=== PATIENT | male | born 1980 | race Caucasian/White ===

== ENCOUNTER 2021-03-16 07:28 | Observation (INO) | payer OTHER, MEDICAID ==
[2021-03-16 08:00] LABS: ANION GAP 13.7 meq/L (7-15); CHLORIDE,CL 102 mmol/L (98-107); SODIUM,NA 140 mmol/L (136-145)
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
[2021-03-16] MEDS ORDERED: Iopamidol 612 MG/ML 100 ML Bottle IVPUSH ONE (08:10)
[2021-03-16] MEDS ORDERED: fentaNYL 100 MCG/2 ML SDV IVPUSH ONE ×2 (08:50→10:18)
[2021-03-16] MEDS: Sodium Chloride 0.9% 10 ML Syringe FLUSH PRN ×6 (08:54→18:20)
[2021-03-16] MEDS ORDERED: HYDROmorphone 1 MG/ML Syringe IVPUSH ONE (09:48)
[2021-03-16] MEDS ORDERED: Midazolam 1 MG/ML 2 ML SDV IVPUSH ONE (10:17)
[2021-03-16] MEDS ORDERED: Bacitracin Oint 1 GM U/D Packet TOP ONE (10:45)
[2021-03-16] MEDS ORDERED: Sodium Chloride 0.9% 1,000 ML IV SCH (11:00)
[2021-03-16] MEDS ORDERED: Ondansetron 4 MG/2 ML SDV IVPUSH PRN (12:16)
[2021-03-16] MEDS ORDERED: Morphine 2 MG/ML SYRINGE IVPUSH PRN (12:16)
[2021-03-16] MEDS ORDERED: Ondansetron 4 MG Tab.DIS PO PRN (12:16)
[2021-03-16] MEDS ORDERED: Sodium Chloride 0.9% 10 ML Syringe FLUSH PRN (12:16)
[2021-03-16] MEDS ORDERED: Acetaminophen 325 MG Tab PO PRN (12:16)
[2021-03-16] MEDS ORDERED: Diphtheria,Pertussis(Acell),Tetanus Vaccine 0.5 ML Syringe IM ONE (12:24)
[2021-03-16 12:55] LABS: BARBITURATE SCREEN,URINE NEGATIVE (NEGATIVE); BENZODIAZEPINES SCREEN,URINE POSITIVE (NEGATIVE); EDDP,URINE SCREEN NEGATIVE (NEGATIVE); TCA SCREEN,URINE NEGATIVE (NEGATIVE); THC SCREEN,URINE 50 NG/ML NEGATIVE (NEGATIVE)
[2021-03-16 12:58] LABS: BUPRENORPHINE SCREEN,URINE NEGATIVE (NEGATIVE)
[2021-03-16] MEDS ORDERED: Acetaminophen/HYDROcodone 325-10 MG Tab PO PRN (18:24)
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
[2021-03-16] MEDS: Bacitracin/Neomycin/Polymyxin B Oint 0.9 GM U/D Packet TOP SCH (19:46)
[2021-03-16] MEDS ORDERED: Ketorolac 30 MG/ML SDV IVPUSH PRN (20:37)
[2021-03-17] MEDS: Sodium Chloride 0.9% 10 ML Syringe FLUSH PRN (04:13)
[2021-03-17] MEDS: Bacitracin/Neomycin/Polymyxin B Oint 0.9 GM U/D Packet TOP SCH (08:36)
== END 2021-03-17 09:15 | disposition home or self-care (01) ==
LOC: LL.ED 07:28 → LL.MS 12:03 → UNDOADMOB 12:03 → LL.MS 12:24
PROVIDERS: ADMIT Nurse Practitioner Family; ATTEND Nurse Practitioner Family
DX: S43.005A Unspecified dislocation of left shoulder joint, initial encounter (principal); S43.004A Unspecified dislocation of right shoulder joint, initial encounter; S22.32XA Fracture of one rib, left side, initial encounter for closed fracture; M25.571 Pain in right ankle and joints of right foot; V87.7XXA Person injured in collision between other specified motor vehicles (traffic), initial encounter; T07.XXXA Unspecified multiple injuries, initial encounter
CPT/HCPCS: 23655; 36415; 70450; 71045; 71260; 72125; 72170; 73020-LT; 73030-LT; 73610-RT; 74177; 80053; 80305-QW; 80307; 82150; 83690; 83735; 85025; 90471; 90715; 93005; 96374; 99285-25; A9270-GY; J1170; J1885; J2250; J2270; J3010; J7030; Q9967